=== PATIENT | male | born 1950 | race Caucasian/White ===

== ENCOUNTER 2023-06-06 15:54 | Emergency (ER) | payer MEDICARE, SELFPAY ==
[2023-06-06 15:55] VITALS: BP 145/90; PULSE 76; RESP 16; TEMP 36.8; O2SAT 96; BMI 41.4
[2023-06-06 16:04] VITALS: BP 156/64; PULSE 72; RESP 18; O2SAT 92
--- NOTE | 2023-06-06 16:07 | EKG12_ITS ---
Test Reason : CP Blood Pressure : / mmHG Vent. Rate : 059 BPM Atrial Rate : 059 BPM P-R Int : 168 ms QRS Dur : 092 ms QT Int : 388 ms P-R-T Axes : 033 008 -06 degrees QTc Int : 384 ms Sinus bradycardia Otherwise normal Confirmed by Maninder Pizano ([id number]), editor & co founder DEBBIE ECKERT ([id number]) on 06/08/2023 10:17:17 AM Referred By: Confirmed By:Maninder Pizano
--- NOTE | 2023-06-06 16:11 | EX.ED.DYSGE1 ---
HPI <JEFFERSON Kaur - Last Filed: 06/06/23 19:15> History of Present Illness Chief Complaint: Chest Pain Narrative Narrative: Patient is a 72-year-old male with history of CAD, hypertension, obesity who presents to the emergency department for feeling of fatigue, elevated blood pressure. Patient states last week, he had a dream that a car was on his chest, he woke up with some chest pressure however this is dissipated. Patient does have pain to the right lower back secondary to cleaning a freezer the other day. Patient denies any chest pain or shortness of breath at this time. However secondary to the patient feeling unwell, some elevated blood pressure at home he is here for evaluation [facility] <JEFFERSON Kaur - Last Filed: 06/06/23 19:15> [facility] Medical History Actinic keratosis (~12/2018) BPH (benign prostatic hyperplasia) (~2015) Carotid artery disease Chest pain Class 2 severe obesity due to excess calories with serious comorbidity and body mass index (BMI) of 38.0 to 38.9 in adult Diverticulum of bladder (~2015) Essential (primary) hypertension Flushing GERD (gastroesophageal reflux disease) Hx of gallstones Hydrocele, bilateral Hypomagnesemia Lightheadedness Mixed hyperlipidemia Palpitations Pulmonary emphysema Rosacea Skin cancer Subclavian artery stenosis, left SVT (supraventricular tachycardia) TIA (transient ischemic attack) Home Medications acetaminophen 650 mg tablet,extended release (Tylenol Arthritis Pain) 650 mg PO Q12H 12/24/21 [History Last Taken Unknown] aspirin 81 mg tablet,delayed release 81 mg PO DAILY 12/24/21 [History Last Taken Unknown] finasteride 5 mg tablet 5 mg PO DAILY 12/24/21 [History Last Taken Unknown] furosemide 20 mg tablet 20 mg PO DAILY 12/24/21 [History Last Taken Unknown] garlic 1,000 mg capsule 1,000 mg PO DAILY 12/24/21 [History Last Taken Unknown] lisinopril 10 mg tablet 10 mg PO DAILY 12/24/21 [History Last Taken Unknown] omega-3 fatty acids 1,000 mg capsule 1,000 mg PO DAILY 12/24/21 [History Last Taken Unknown] oxybutynin chloride 5 mg tablet,extended release 24 hr 5 mg PO DAILY 12/24/21 [History Last Taken Unknown] terazosin 10 mg capsule 10 mg PO QHS 12/24/21 [History Last Taken Unknown] amiloride 5 mg tablet 5 mg PO BID 12/31/21 [History Last Taken Unknown] omeprazole 20 mg capsule,delayed release 20 mg PO BID 12/31/21 [History Last Taken Unknown] magnesium oxide 500 mg PO DAILY 03/24/22 [History Last Taken Unknown] metoprolol tartrate 25 mg tablet 25 mg PO BID #60 tabs 02/17/23 [Rx Last Taken Unknown] atorvastatin 20 mg tablet 20 mg PO QHS 06/06/23 [History Last Taken Unknown] diltiazem HCl 60 mg tablet 60 mg PO DINNER 06/06/23 [History Last Taken Unknown] Allergy/AdvReac Type Severity Reaction Status Date / Time amlodipine AdvReac Intermediate Swelling Verified 06/06/23 15:56 Family History Other Hyperlipidemia Hypertension Surgical History H/O bilateral inguinal hernia repair (~2002) History of orthopedic surgery History of surgery (~01/2014) Hx of cholecystectomy Social History Smoking Status: Former smoker how long ago did patient quit smokin03/31/2012 alcohol intake: former substance use type: does not use caffeine: Yes Type: coffee Number of servings: 3 ROS <JEFFERSON Kaur - Last Filed: 06/06/23 19:15> ROS ED ROS Narrative Constitutional: Negative for fever, chills, weight loss, weakness. Positive feeling of generalized fatigue Eyes: Negative for vision loss, vision change, double vision ENT: Negative for any sore throat, ear pain, congestion Cardiovascular: Negative for any chest pain, tightness, palpitations. Positive for some elevated blood pressure at home Respiratory: Negative for any cough, sputum production, hemoptysis, dyspnea, dyspnea on exertion, orthopnea Gastrointestinal: Negative for any abdominal pain, nausea, vomiting, diarrhea, constipation, blood in stool, blood in vomit : Negative for any urinary frequency, dysuria, retention, blood in urine Muscle skeletal: Negative for any neck pain, back pain Neurological: Negative for any headache, syncope, dizziness Skin: Negative for any rashes, itching, abrasions, lacerations Psychiatric: Negative for any depression, anxiety, stress, suicidal ideation, homicidal ideation Hematologic: Negative for any excessive bruising, easy bleeding EXAM <JEFFERSON Kaur - Last Filed: 06/06/23 19:15> Physical Exam Narrative Exam Narrative: Vital signs reviewed. HEET: Head normocephalic atraumatic, TMs clear bilaterally. Posterior pharynx is clear, moist mucous membranes. Nares clear bilaterally. Neck: Supple with no lymphadenopathy or tenderness. No signs of meningismus. Cardiac: Regular rate and rhythm no murmurs gallops or rubs, equal peripheral pulses bilaterally. Respiratory: Lungs clear to auscultation bilaterally. No chest tenderness. Abdomen: Soft, nontender, nondistended. No abdominal bruit or pulsatile masses. No hepatosplenomegaly Extremities: No peripheral edema, no signs of gross trauma or deformity. Active full range of motion of all extremities. Neuro: Cranial nerves II through XII intact, no focal neurological deficits. Skin: Clean dry and intact with no rash, purpura, petechiae, vesicles or pustules. Backs/flank: No CVA tenderness, no midline spinal tenderness, no deformity. Psych: Normal mood and affect. No SI, HI or acute psychosis. Const Vital Signs: 06/06/23 15:55 06/06/23 15:57 06/06/23 16:04 Temperature 98.3 F Temperature Source Oral Pulse Rate 76 72 Respiratory Rate 16 18 Respiratory Effort Normal Non-Labored Blood Pressure 145/90 H 156/64 H Blood Pressure Mean 108 94 Pulse Ox 96 92 Oxygen Delivery Method Room Air Room Air 06/06/23 16:34 06/06/23 18:09 06/06/23 18:59 Temperature 98.3 F Temperature Source Oral Pulse Rate 62 61 61 Respiratory Rate 18 18 20 H Respiratory Effort Blood Pressure 155/63 H 144/69 H 131/60 H Blood Pressure Mean 93 94 83 Pulse Ox 91 95 93 Oxygen Delivery Method Room Air Room Air Room Air 06/06/23 19:22 Temperature 98.3 F Temperature Source Pulse Rate 63 Respiratory Rate 18 Respiratory Effort Blood Pressure 141/71 H Blood Pressure Mean 94 Pulse Ox 97 Oxygen Delivery Method <Dr. Estrada Ybarra DO - Last Filed: 06/07/23 01:15> Physical Exam Const Vital Signs: 06/06/23 15:55 06/06/23 15:57 06/06/23 16:04 Temperature 98.3 F Temperature Source Oral Pulse Rate 76 72 Respiratory Rate 16 18 Respiratory Effort Normal Non-Labored Blood Pressure 145/90 H 156/64 H Blood Pressure Mean 108 94 Pulse Ox 96 92 Oxygen Delivery Method Room Air Room Air 06/06/23 16:34 06/06/23 18:09 06/06/23 18:59 Temperature 98.3 F Temperature Source Oral Pulse Rate 62 61 61 Respiratory Rate 18 18 20 H Respiratory Effort Blood Pressure 155/63 H 144/69 H 131/60 H Blood Pressure Mean 93 94 83 Pulse Ox 91 95 93 Oxygen Delivery Method Room Air Room Air Room Air 06/06/23 19:22 Temperature 98.3 F Temperature Source Pulse Rate 63 Respiratory Rate 18 Respiratory Effort Blood Pressure 141/71 H Blood Pressure Mean 94 Pulse Ox 97 Oxygen Delivery Method [facility] <JEFFERSON Kaur - Last Filed: 06/06/23 19:15> [facility] Lab Data Labs: Laboratory Results - last 24 hr 06/06/23 06/06/23 16:00 18:05 WBC 5.8 RBC 5.44 Hgb 17.2 H Hct 50.0 MCV 91.9 MCH 31.6 MCHC 34.4 RDW Std Deviation 39.9 RDW Coeff of Boris 11.9 Plt Count 166 MPV 9.3 Immature Gran % (Auto) 2.200 H Neut % (Auto) 66.2 Lymph % (Auto) 19.9 [place] % (Auto) 9.8 Eos % (Auto) 1.0 Baso % (Auto) 0.9 Absolute Neuts (auto) 3.9 Absolute Lymphs (auto) 1.16 Nucleated RBC % 0 Sodium 136 Potassium 4.2 Chloride 106 Carbon Dioxide 23.0 Anion Gap 7 BUN 14 Creatinine 1.02 Estim Creat Clear Calc 71.28 Est GFR (MDRD) Af Amer 92 Est GFR (MDRD) Non-Af 76 BUN/Creatinine Ratio 13.7 Glucose 159 H Calcium 8.7 Troponin I High Sens 21 27 Radiography Diagnostic Testing: Clinical Impression(s) from Imaging Studies Chest X-Ray 06/06/23 16:23 IMPRESSION: Possible focal left basilar infiltrate. Right basilar atelectasis. Electronically Signed: Robe العلي DO at 17:12 EDT Reading Location ID and State: [facility] / [place] Tel [phone], Service support , EKG Sinus bradycardia: Attestation: I personally reviewed and interpreted this EKG as follows: Comments: Sinus bradycardia, rate of 59 bpm, IL interval 168 ms, QRS duration 92 ms, no acute ST elevation, no acute infarct noted Treatment and Re-Evaluation :: Differential diagnosis includes however is not limited to: ACS, NJ, NSTEMI, hypertensive urgency, anxiety, viral symptoms Patient appears generally well, patient appears nontoxic, vital signs are stable. Patient presents to the emergency department with complaints of generalized feeling of unwell, elevated blood pressure. Patient received a full cardiac workup. This will include 2 troponins, basic laboratory values. Patient is currently not complain of any chest pain or shortness of breath. Patient received a chest x-ray, all radiologic examinations were read, reviewed by the emergency department attending. From these reads, a plan of care will be put in place. Patient's laboratory values show a normal CBC, patient's chemistries were unremarkable, glucose was 159 with initial troponin of 21, repeat troponin was 27. This is negative, there is no evidence of any ACS or NJ. Patient's chest x-ray showed no acute process. This was interpreted by ER physician. EKG shows no acute ACS or NJ, no STEMI, negative for any NSTEMI. Patient does have a left bundle branch however this is chronic. Patient will follow-up outpatient. He is happy with the plan of care, all questions answered, stable for discharge <Dr. Estrada Ybarra, - Last Filed: 06/07/23 01:15> [facility] History & Record Review Discussion w/independent historian: Patient Lab Data Attestation: I reviewed the patient's lab results. Labs: Laboratory Results - last 24 hr 06/06/23 06/06/23 16:00 18:05 WBC 5.8 RBC 5.44 Hgb 17.2 H Hct 50.0 MCV 91.9 MCH 31.6 MCHC 34.4 RDW Std Deviation 39.9 RDW Coeff of Boris 11.9 Plt Count 166 MPV 9.3 Immature Gran % (Auto) 2.200 H Neut % (Auto) 66.2 Lymph % (Auto) 19.9 [place] % (Auto) 9.8 Eos % (Auto) 1.0 Baso % (Auto) 0.9 Absolute Neuts (auto) 3.9 Absolute Lymphs (auto) 1.16 Nucleated RBC % 0 Sodium 136 Potassium 4.2 Chloride 106 Carbon Dioxide 23.0 Anion Gap 7 BUN 14 Creatinine 1.02 Estim Creat Clear Calc 71.28 Est GFR (MDRD) Af Amer 92 Est GFR (MDRD) Non-Af 76 BUN/Creatinine Ratio 13.7 Glucose 159 H Calcium 8.7 Troponin I High Sens 21 27 Radiography Diagnostic Testing: Clinical Impression(s) from Imaging Studies Chest X-Ray 06/06/23 16:23 IMPRESSION: Possible focal left basilar infiltrate. Right basilar atelectasis. Electronically Signed: Robe العلي DO at 17:12 EDT Reading Location ID and State: [facility] / [place] Tel [phone], Service support , Treatment and Re-Evaluation :: Differential diagnosis includes however is not limited to: ACS, NJ, NSTEMI, hypertensive urgency, anxiety, viral symptoms Patient appears generally well, patient appears nontoxic, vital signs are stable. Patient presents to the emergency department with complaints of generalized feeling of unwell, elevated blood pressure. Patient received a full cardiac workup. This will include 2 troponins, basic laboratory values. Patient is currently not complain of any chest pain or shortness of breath. Patient received a chest x-ray, all radiologic examinations were read, reviewed by the emergency department attending. From these reads, a plan of care will be put in place. Patient's laboratory values show a normal CBC, patient's chemistries were unremarkable, glucose was 159 with initial troponin of 21, repeat troponin was 27. This is negative, there is no evidence of any ACS or NJ. Patient's chest x-ray showed no acute process. This was interpreted by ER physician. EKG shows no acute ACS or NJ, no STEMI, negative for any NSTEMI. Patient does have a left bundle branch however this is chronic. Patient will follow-up outpatient. He is happy with the plan of care, all questions answered, stable for discharge I have personally performed a face to face assessment of the patient and have reviewed the MICHAEL Note. I performed a substantive portion of the visit including all aspects of the following. My pereyra findings include: History is 72-year-old male presenting to the emergency room with a chief complaint of hypertension. Patient states that last week he had a nightmare the left him with some chest heaviness. He states he been doing pretty well and this morning he noticed a slight headache and slight discomfort in his chest which she states has had before but he got to thinking about his bedroom his chest habitus was concerned perhaps he gets some heart damage so he came to the hospital. He is notes over the past several days his blood pressure has been higher than normal. Some readings around 180 systolic. He states he was admitted into outside hospital about a month ago with chest discomfort and had negative heart enzymes. Exam is well-appearing male sitting comfortably in the bed. Current blood pressure about 156/98. Patient heart regular without murmur lung sounds clear and equal. No leg swelling. Medical Decison Making EKG is nonischemic. My independent interpretation of the chest x-ray is no acute process. 2 sets cardiac enzymes negative. Heart rate is come down on its own. Would recommend following up for continued blood pressure management. Patient to return if worsening or concerns Discharge Plan Triage Chief Complaint: Chest Pain Other Complaint: Headache ED Midlevel Provider: Dariel Maya ED Provider: Estrada Ybarra Dx/Rx/DC Orders Clinical Impression: Essential (primary) hypertension, Chest pain Instructions: Blood Pressure Check Steps, ED Chest Pain, Uncertain Cause Prescriptions: No Action terazosin 10 mg capsule 10 mg PO QHS finasteride 5 mg tablet 5 mg PO DAILY furosemide 20 mg tablet 20 mg PO DAILY lisinopril 10 mg tablet 10 mg PO DAILY oxybutynin chloride 5 mg tablet extended release 24hr 5 mg PO DAILY acetaminophen [Tylenol Arthritis Pain] 650 mg tablet extended release 650 mg PO Q12H garlic 1,000 mg capsule 1,000 mg PO DAILY aspirin 81 mg tablet,delayed release (DR/EC) 81 mg PO DAILY omega-3 fatty acids 1,000 mg capsule 1,000 mg PO DAILY omeprazole 20 mg capsule,delayed release(DR/EC) 20 mg PO BID amiloride 5 mg tablet 5 mg PO BID magnesium oxide 500 mg tablet 500 mg PO DAILY diltiazem HCl 60 mg tablet 60 mg PO DINNER atorvastatin 20 mg tablet 20 mg PO QHS metoprolol tartrate 25 mg tablet 25 mg PO BID Qty: 60 11RF Primary Care Provider: Jose Cruz Campbell Referrals: Jose Cruz Campbell MD [Primary Care Provider] - Activity Restrictions/Additional Instructions: You had a normal workup today. Please follow-up outpatient. Return for any worsening symptoms Disposition Disposition: Home, Self Care Discharge Date/Time: 06/06/23 19:23
[2023-06-06 16:20] LABS: Absolute Lymphocyte Count 1.16 X10^3/uL (0.83-4.51); Absolute Neutrophil Count 3.9 X10^3/uL (2.0-7.7); Basophil# 0.05 X10^3/uL; Basophil% 0.9 % (0-1); Eosinophil# 0.06 X10^3/uL; Hemoglobin 17.2 g/dL (13.0-16.5); Lymphocyte # 1.16 X10^3/ul (0.83-4.51); Lymphocyte % 19.9 % (19-41); Mean Corp Hgb Conc 34.4 g/dL (32-36); Mean Corpuscular Hgb 31.6 pg (27.0-32.0); Mean Corpuscular Volume 91.9 fL (80-94); Mean Platelet Vol. 9.3 fl (6.2-12.0); Monocyte# 0.57 X10^3/uL; Monocyte% 9.8 % (0-10); NRBC Flagged by Analyzer 0 % (0-5); Neutrophil # 3.85 X10^3/uL (2.7-7.7); Neutrophil % 66.2 % (47-70); Platelet Count 166 K/mm3 (150-450); RBC Distribution Width CV 11.9 % (11.6-14.6); RBC Distribution Width SD 39.9 fl (35.1-43.9); Red Blood Count 5.44 M/mm3 (4.6-6.2); White Blood Count 5.8 K/mm3 (4.4-11.0)
--- NOTE | 2023-06-06 16:23 | RAD_ITS ---
INDICATION: chest pain EXAMINATION/TECHNIQUE: X-RAY - XR Chest 1 View COMPARISON: FINDINGS: LINES/DEVICES: None. LUNGS: Possible focal left basilar infiltrate. Right basilar atelectasis. No pneumothorax. MEDIASTINUM AND CARDIOVASCULAR STRUCTURES: Cardiac silhouette not enlarged. Central airways and mediastinal contour are unremarkable. BONES AND SOFT TISSUES: Degenerative vertebral changes. RAD/Chest 1 View (Portable) IMPRESSION: Possible focal left basilar infiltrate. Right basilar atelectasis. Electronically Signed: Robe العلي DO at 17:12 EDT ,
[2023-06-06] MEDS: Acetaminophen 500 MG Tablet 1000 MG PO (16:33)
[2023-06-06 16:34] VITALS: BP 155/63; PULSE 62; RESP 18; O2SAT 91
[2023-06-06 16:46] LABS: Anion Gap 7 (5-15); BUN 14 mg/dL (7-18); BUN/Creat Ratio 13.7 RATIO (10-20); Calcium,Total 8.7 mg/dL (8.5-10.1); Chloride 106 mmol/L (98-107); Creatinine, Serum 1.02 mg/dL (0.70-1.30); EST Glomerular Filtration Rate 76 mL/min (>60); Est Glom Filt Rate - Afr Amer 92 mL/min (>60); Estimated Creatinine Clearance 71.28 ml/min; Glucose 159 mg/dL (74-106); Potassium 4.2 mmol/L (3.5-5.1); Sodium Level 136 mmol/L (136-145); Troponin-I HS (w/2H Reflex) 21 pg/mL (3.0-78.0)
[2023-06-06 18:09] VITALS: BP 144/69; PULSE 61; RESP 18; TEMP 36.8; O2SAT 95
[2023-06-06 18:14] LABS: Reflex Troponin-HS? (from REC) Y
[2023-06-06 18:42] LABS: Troponin-I HS 27 pg/mL (3.0-78.0)
[2023-06-06 18:59] VITALS: BP 131/60; PULSE 61; RESP 20; O2SAT 93
[2023-06-06 19:22] VITALS: BP 141/71; PULSE 63; RESP 18; TEMP 36.8; O2SAT 97
== END 2023-06-06 19:23 | disposition home or self-care (01) ==
PROVIDERS: Nurse Practitioner; Emergency Provider Emergency Medicine; PCP Family Medicine; Visit Provider Emergency Medicine
DX: I10 Essential (primary) hypertension (principal); J43.9 Emphysema, unspecified; M54.50 Low back pain, unspecified; R07.9 Chest pain, unspecified; R51.9 Headache, unspecified; I25.10 Atherosclerotic heart disease of native coronary artery without angina pectoris; E78.2 Mixed hyperlipidemia; K21.9 Gastro-esophageal reflux disease without esophagitis; Z79.82 Long term (current) use of aspirin; Z79.899 Other long term (current) drug therapy; Z87.891 Personal history of nicotine dependence; Z86.73 Personal history of transient ischemic attack (TIA), and cerebral infarction without residual deficits
CPT/HCPCS: 71045; 80048; 84484; 85025; 93005; 99285; A4216

== ENCOUNTER → 2023-07-08 | Outpatient (CLI) | payer MEDICARE, SELFPAY ==
[2023-07-08 14:33] LABS: AST(SGOT) 33 U/L (15-37); Alanine Aminotransfer ALT/SGPT 50 U/L (16-61); Anion Gap 3 (5-15); BUN 16 mg/dL (7-18); BUN/Creat Ratio 16.4 RATIO (10-20); Calcium,Total 8.9 mg/dL (8.5-10.1); Chloride 106 mmol/L (98-107); Creatinine, Serum 0.98 mg/dL (0.70-1.30); EST Glomerular Filtration Rate 80 mL/min (>60); Est Glom Filt Rate - Afr Amer 96 mL/min (>60); Glucose 147 mg/dL (74-106); Potassium 4.1 mmol/L (3.5-5.1); Sodium Level 137 mmol/L (136-145)
== END | disposition home or self-care (01) ==
LOC: PAVLAB 13:55
PROVIDERS: PCP Family Medicine; Referring Provider Internal Medicine Cardiovascular Disease; Visit Provider Internal Medicine Cardiovascular Disease
DX: R07.9 Chest pain, unspecified (principal); E66.01 Morbid (severe) obesity due to excess calories; Z68.38 Body mass index [BMI] 38.0-38.9, adult; I10 Essential (primary) hypertension; R00.2 Palpitations
CPT/HCPCS: 36415; 80048; 84450; 84460

== ENCOUNTER → 2023-08-10 | Outpatient (CLI) | payer MEDICARE, SELFPAY ==
--- NOTE | 2023-08-10 07:02 | ECHOD_ITS ---
Reason For Study: Chest Pain Procedure This was a 2D Doppler, Color Flow transthoracic echocardiogram. Exam performed in department. Left Ventricle Normal LV size. Mild concentric left ventricular hypertrophy. The left ventricular ejection fraction is 65 %. Diastolic function is indeterminate. Right Ventricle Normal right ventricle. Atria The left atrium is moderately enlarged. Normal right atrium. Mitral Valve Moderate (2+) posteriorly directed mitral valve insufficiency. Tricuspid Valve Mild tricuspid valve insufficiency. Right ventricular systolic pressure estimated to be 40 mmHg. Aortic Valve Trisinus/trileaflet aortic valve. Mild diffuse aortic valve thickening. Pulmonic Valve The pulmonic valve is not well visualized. Trivial pulmonic valve insufficiency. Great Vessels Normal sized aortic root. Pericardium/Pleural No pericardial effusion. MMode/2D Measurements & Calculations LVIDd: 5.4 cm IVSd: 1.3 cm Ao root diam: 3.2 cm LVIDs: 3.4 cm LVPWd: 0.92 cm LA dimension: 4.5 cm RVDd: 4.2 cm FS: 36.2 % LAV(MOD-bp): 65.8 ml LVAd ap4: 30.5 cm2 SV(MOD-sp4): 57.5 ml LAV(MOD-bp) Indexed: 30.6 ml/m2 LVLd ap4: 7.9 cm LAV(MOD-sp2): 55.4 ml EDV(MOD-sp4): 95.9 ml LAV(MOD-sp4): 69.9 ml EDV(sp4-el): 100.1 ml LVAs ap4: 17.1 cm2 LVLs ap4: 6.6 cm ESV(MOD-sp4): 38.4 ml ESV(sp4-el): 38.0 ml EF(MOD-sp4): 59.9 % EF(sp4-el): 62.0 % SV(sp4-el): 62.1 ml LA A4 area: 23.4 cm2 RA A4 area: 16.5 cm2 TAPSE: 2.7 cm Time Measurements MV dec time: 0.20 sec Doppler Measurements & Calculations MV E max albin: 90.5 cm/sec Lat Peak E' Albin: 13.4 cm/sec Med Peak E' Albin: 6.6 cm/sec MV A max albin: 100.4 cm/sec E/E' lat: 6.7 E/E' med: 13.8 MV E/A: 0.90 MV V2 max: 125.0 cm/sec MV P1/2t max albin: 119.2 cm/sec Ao V2 max: 130.1 cm/sec MV max P.3 mmHg MV P1/2t: 68.0 msec Ao max P.8 mmHg MV V2 mean: 61.6 cm/sec MV dec slope: 513.4 cm/sec2 Ao V2 mean: 90.3 cm/sec MV mean P.9 mmHg Ao mean P.7 mmHg MV V2 VTI: 40.9 cm MVA(P1/2t): 3.2 cm2 Ao V2 VTI: 31.7 cm AV (velocity ratio): 0.83 LV V1 max: 110.9 cm/sec MR max albin: 602.2 cm/sec PA V2 max: 152.3 cm/sec LV V1 max P.9 mmHg MR max P.1 mmHg PA max PG (full): 6.8 mmHg LV V1 mean P.6 mmHg MR mean albin: 496.5 cm/sec PA V2 mean: 86.4 cm/sec LV V1 mean: 74.3 cm/sec MR mean P.2 mmHg PA mean PG (full): 2.5 mmHg LV V1 VTI: 26.5 cm MR VTI: 211.5 cm PI dec slope: 128.1 cm/sec2 TR max albin: 297.2 cm/sec TR max P.3 mmHg ECHO/Echo Complete Interpretation Summary Mild concentric left ventricular hypertrophy. The left ventricular ejection fraction is 65 %. Diastolic function is indeterminate. The left atrium is moderately enlarged. Moderate (2+) posteriorly directed mitral valve insufficiency. Mild tricuspid valve insufficiency. Right ventricular systolic pressure estimated to be 40 mmHg. Ordering Physician: Shannon Zuluaga Referring Physician: Shannon Zuluaga Performed By: Franklin Zee [facility]
--- NOTE | 2023-08-10 09:24 | STRESSREP ---
Stress Test Report Date: 08/10/2023 Procedure: Pharmacologic stress nuclear imaging study Indications: Chest pain Consent: Per the patient Procedure: The patient underwent pharmacologic (Regadenoson 0.4mg ) evaluation with a peak heart rate of 76 beats per minute (52%predicted maximal heart rate) and a peak blood pressure of 154/74 mmHg. The baseline ECG demonstrated sinus rhythm. The peak pharmacologic ECG demonstrated no ischemic changes. Rare PVC preinfusion. There was no complaint of chest discomfort during pharmacologic infusion or recovery. The patient was injected with 14.1 millicuries of technetium 99m Cardiolite and subsequently rest SPECT Cardiolite nuclear imaging was obtained in the horizontal long, vertical long, and short axis views. The patient underwent pharmacologic (Regadenoson) evaluation. The patient was injected with 44.7 millicuries of technetium 99m Cardiolite and subsequently stress SPECT Cardiolite nuclear imaging was obtained in the horizontal long, vertical long, and short axis views. A gated Cardiolite study at peak stress was obtained. The examination was stopped secondary to completion of protocol. Rest and stress SPECT Cardiolite nuclear imaging status post realignment, normalization, and attenuation correction demonstrate a moderate size reversible perfusion defect of the inferior wall suggestive of ischemia. There is end systolic thickening and brightening. The gated Cardiolite study demonstrates myocardial thickening and inward wall motion. The reported LVEF is 68%. Impression: 1. Pharmacologic (Regadenoson) evaluation 2. Peak pharmacologic ECG with no ischemic changes. 3. PVCs noted preinfusion. 5. Moderate size reversible perfusion defect of the inferior wall suggestive of ischemia. 6. The gated Cardiolite study reports an LVEF of 68%. This note was generated with [email or web address] software. It may contain incorrect words, spelling, and punctuation that were not noted in checking the note before signing.
== END | disposition home or self-care (01) ==
LOC: CVS 07:01
PROVIDERS: PCP Family Medicine; Referring Provider Internal Medicine Cardiovascular Disease; Visit Provider Internal Medicine Cardiovascular Disease
DX: R07.9 Chest pain, unspecified (principal); R00.2 Palpitations; I77.9 Disorder of arteries and arterioles, unspecified; I10 Essential (primary) hypertension
CPT/HCPCS: 78452; 93017; 93306; A9500; A4216; J2785

== ENCOUNTER 2023-09-01 07:09 | Day surgery (SDC) | payer MEDICARE, SELFPAY ==
--- NOTE | 2023-08-11 09:19 | PCM.HP.BLA ---
History and Physical Date of Admission: 09/01/23 Levy Brantley is a 72 year old gentleman who presented to the ER on 06/07/2023 with chest pain. It was described as a pressure that felt like a car on his chest. He woke up with chest discomfort. Workup in the emergency room was negative for acute coronary syndrome. He does have a hx of hypertension, hyperlipidemia, SVT and carotid artery stenosis. Echocardiogram on August 10, 2023 demonstrated an ejection fraction of 60% with moderate mitral valve insufficiency. Pharmacologic nuclear stress test demonstrated a moderate size reversible defect in the inferior wall suggestive of ischemia. Because of this he is scheduled to undergo a diagnostic heart catheterization. Allergies amlodipine Adverse Reaction (Intermediate, Verified 06/30/23 14:35) Swelling Medications acetaminophen 650 mg tablet,extended release (Tylenol Arthritis Pain) 650 mg PO Q12H 12/24/21 [History Confirmed 06/30/23] aspirin 81 mg tablet,delayed release 81 mg PO DAILY 12/24/21 [History Confirmed 06/30/23] finasteride 5 mg tablet 5 mg PO DAILY 12/24/21 [History Confirmed 06/30/23] furosemide 20 mg tablet 20 mg PO DAILY 12/24/21 [History Confirmed 06/30/23] garlic 1,000 mg capsule 1,000 mg PO DAILY 12/24/21 [History Confirmed 06/30/23] lisinopril 10 mg tablet 10 mg PO DAILY 12/24/21 [History Confirmed 06/30/23] omega-3 fatty acids 1,000 mg capsule 1,000 mg PO DAILY 12/24/21 [History Confirmed 06/30/23] oxybutynin chloride 5 mg tablet,extended release 24 hr 5 mg PO DAILY 12/24/21 [History Confirmed 06/30/23] terazosin 10 mg capsule 10 mg PO QHS 12/24/21 [History Confirmed 06/30/23] amiloride 5 mg tablet 5 mg PO BID 12/31/21 [History Confirmed 06/30/23] omeprazole 20 mg capsule,delayed release 20 mg PO BID 12/31/21 [History Confirmed 06/30/23] magnesium oxide 500 mg PO DAILY 03/24/22 [History Confirmed 06/30/23] metoprolol tartrate 25 mg tablet 25 mg PO BID #60 tabs 02/17/23 [Rx Confirmed 06/30/23] atorvastatin 20 mg tablet 20 mg PO QHS 06/06/23 [History Confirmed 06/30/23] diltiazem HCl 60 mg tablet 60 mg PO DINNER 06/06/23 [History Confirmed 06/30/23] PFSH Medical History Actinic keratosis (~12/2018) BPH (benign prostatic hyperplasia) (~2015) Carotid artery disease Chest pain Class 2 severe obesity due to excess calories with serious comorbidity and body mass index (BMI) of 38.0 to 38.9 in adult Diverticulum of bladder (~2015) Essential (primary) hypertension Flushing GERD (gastroesophageal reflux disease) Hx of gallstones Hydrocele, bilateral Hypomagnesemia Lightheadedness Mixed hyperlipidemia Palpitations Pulmonary emphysema Rosacea Skin cancer Subclavian artery stenosis, left SVT (supraventricular tachycardia) TIA (transient ischemic attack) Surgical History H/O bilateral inguinal hernia repair (~2002) History of orthopedic surgery History of surgery (~01/2014) Hx of cholecystectomy Family History Other Hyperlipidemia Hypertension Social History Smoking Status: Former smoker how long ago did patient quit smokin03/31/2012 alcohol intake: former substance use type: does not use caffeine: Yes Type: coffee Number of servings: 3 ROS Const Const: Negative for fatigue, weakness, headache(s), daytime sleepiness or difficulty sleeping ENT ENT: Negative for headache(s), dizziness or Nosebleed/epistaxis Cardio Chest Pain: No Palpitations: No Edema: Bilateral (BLE) Resp Respiratory: Negative for SOB with activity, SOB at rest, SOB orthopnea\SOB lying down or Cough GI GI: Negative nausea, vomiting or heartburn Neuro Neuro: Negative for dizziness, lightheadedness, near syncope, headache(s) or weakness Endo Endo: Negative for fatigue Cardiology Exam Const Appearance: comfortable and no acute distress Nutritional Appearance: well nourished Neck Neck: no JVD Carotids: Negative bruit Chest Auscultation: Bilateral: Clear to Auscultation Cardio Rate: regular rate Rhythm: regular rhythm Heart sounds: S1 normal and S2 normal Soft systolic murmur at base Neuro General: patient alert, patient awake and patient oriented x3 Extremities Lower Extremity Edema: None: Bilateral Assessment & Plan Assessment/Plan (1) Abnormal stress test: (2) Chest pain: PLAN: Plan With patient's history of chest pain and abnormal stress test we will proceed with a diagnostic heart catheterization. Patient will follow-up based upon findings.
[2023-08-26 08:43] LABS: Absolute Lymphocyte Count 1.26 X10^3/uL (0.83-4.51); Absolute Neutrophil Count 2.6 X10^3/uL (2.0-7.7); Basophil# 0.05 X10^3/uL; Eosinophil# 0.07 X10^3/uL; Eosinophils% 1.5 % (0-5); Hematocrit 49.3 % (40-54); Hemoglobin 16.8 g/dL (13.0-16.5); Lymphocyte # 1.26 X10^3/ul (0.83-4.51); Lymphocyte % 26.1 % (19-41); Mean Corp Hgb Conc 34.1 g/dL (32-36); Mean Corpuscular Hgb 31.6 pg (27.0-32.0); Mean Corpuscular Volume 92.8 fL (80-94); Mean Platelet Vol. 9.6 fl (6.2-12.0); Monocyte# 0.65 X10^3/uL; Monocyte% 13.5 % (0-10); NRBC Flagged by Analyzer 0 % (0-5); Neutrophil # 2.64 X10^3/uL (2.7-7.7); Neutrophil % 54.8 % (47-70); Platelet Count 158 K/mm3 (150-450); RBC Distribution Width CV 11.9 % (11.6-14.6); RBC Distribution Width SD 40.6 fl (35.1-43.9); Red Blood Count 5.31 M/mm3 (4.6-6.2); White Blood Count 4.8 K/mm3 (4.4-11.0)
[2023-08-26 09:05] LABS: Prothrombin Time (Protime)PT. 13.7 SECONDS (11.7-14.9)
[2023-08-26 09:06] LABS: Partial Thromboplast Time 29.3 Seconds (24.1-36.2)
[2023-08-26 09:20] LABS: Anion Gap 10 (5-15); BUN 18 mg/dL (7-18); BUN/Creat Ratio 15.7 RATIO (10-20); Calcium,Total 9.1 mg/dL (8.5-10.1); Chloride 102 mmol/L (98-107); Cholesterol 106 mg/dL (200); Creatinine, Serum 1.15 mg/dL (0.70-1.30); EST Glomerular Filtration Rate 66 mL/min (>60); Est Glom Filt Rate - Afr Amer 80 mL/min (>60); Glucose 116 mg/dL (74-106); High Density Lipoprotein 36 mg/dL; Potassium 4.3 mmol/L (3.5-5.1); Sodium Level 138 mmol/L (136-145); Triglycerides 250 mg/dL; Very Low Density Lipoprotein 50 mg/dL (5-40)
[2023-08-31 08:04] VITALS: BMI 38.9
--- NOTE | 2023-09-01 09:59 | CL.D_ITS ---
Patient Name: ADA ALVAREZ Study Date: 09/01/2023 Performing: Shannon Zuluaga MD Ht: 64 inches 162.56 cm : 1950 Wt: 227.01 lbs 102.97 kg Age: 73 Gender: male BSA: 2.06 PROCEDURE(S) PERFORMED [id number] CLINICAL PROFILE AND INDICATIONS Indications: Suspected CAD Heart Failure: None Stress/Imaging Stress Test w/SPECT MPI: Yes Result: Positive Intermediate RiskStress Test with SPECT MPI: Positive Intermediate Risk CONCLUSIONS 50% ostial LMCA 50% Prox/Mid LAD 60% Mid OM1 100% ostial RCA; filling retrogradely via collaterals from left system RECOMMENDATIONS Medical therapy DESCRIPTION OF PROCEDURE The patient arrived to the procedure lab. The risks and benefits of the procedure as well as a full description of our services here and current unavailability of surgical backup were fully explained to the patient and/or their significant other prior to the catheterization. The Timeout was completed, verifying the correct patient and procedure. The patient's procedural site was prepped and draped in the usual fashion. Local anesthetic was given subcutaneously to right radial region with Lidocaine 2%. Using a modified Seldinger technique, arterial access was obtained via the right radial artery, a 6Fr sheath was inserted. Left Coronary Artery selective angiography was performed in multiple views using a 5 Fr. 4.0 Durham catheter. Right Coronary Artery selective angiography was then performed in multiple views using a 5 Fr. 4.0 Durham catheter. Right Coronary Artery selective angiography was then performed in multiple views using a 6 Fr. AL 0.75.The arterial sheath was pulled and a TR Band was applied for hemostasis w/ 11ml air CORONARY ANGIOGRAPHY DOMINANCE: Right Dominant LEFT MAIN: Tubular 50% Ostial lesion in LMCA LEFT ANTERIOR DESCENDING ARTERY: LAD: Tubular 50% Mid lesion in LAD OM 1: Tubular 60% Mid lesion in MARG1 OM 2: Tubular 60% Mid lesion in MARG1 RIGHT CORONARY ARTERY: RCA: Calcified 100% Ostial lesion in RCA COLLATERAL FLOW: Collateral flow from SEP to RT PDA Collateral flow from CX to RT LV-BR COMPLICATIONS No Complications PROCEDURE MEDICATIONS Versed 1 mg IV Fentanyl 50 mcg IV Oxygen: 2 L/min via nasal cannula Heparin given IA 09/01/2023 09:03:45 Heparin 2000 unit(s) IV 09/01/2023 09:39:23 Verapamil 2.5mg, Ntg 200mcgs, 2000 units of Heparin given IA 09/01/2023 09:03:45 IV Bolus: .9 NaCl 250 ml total 09/01/2023 09:10:59 SUMMARY OF HEMODYNAMIC DATA Time AIR REST ECG 07:35:29 AO 135/59 (87) SA 09:20:33 09:55:23 Signed By Shannon Zuluaga MD On 09/01/2023 09:58:41 Shannon Zuluaga MD
== END 2023-09-01 11:30 | disposition home or self-care (01) ==
PROVIDERS: Physician Assistant Medical; PCP Family Medicine; Referring Provider Internal Medicine Cardiovascular Disease; Visit Provider Internal Medicine Cardiovascular Disease
DX: I25.10 Atherosclerotic heart disease of native coronary artery without angina pectoris (principal); R07.9 Chest pain, unspecified; Z87.891 Personal history of nicotine dependence; R94.39 Abnormal result of other cardiovascular function study; I10 Essential (primary) hypertension; E78.5 Hyperlipidemia, unspecified
CPT/HCPCS: 36415; 80048; 80061; 85025; 85610; 85730; 93454; 99152; 99153; J7040; Q9967; C1769; C1887; C1894